=== PATIENT | male | born 1955 | race Asian ===

== ENCOUNTER 2016-12-03 02:36 | Inpatient (IN) | payer MEDICAID ==
[~2016-12-03] VITALS: Ht 162.6 cm; Wt 44.9 kg
[2016-12-03] VITALS (12 sets, daily range): BP systolic 79–111; BP diastolic 56–76
--- NOTE | 2016-12-03 02:55 | Emergency Room Report ---
History of Present Illness General Chief Complaint: Altered Level of Consciousness Source: Family Member, EMS Present Illness HPI This is a 61-year-old [place] male with history of end-stage gastric cancer. He was on chemotherapy for a year. But now cancers getting worse and he was switched to another chemotherapy drugs. He had one round but stopped because he could not tolerate the side effects. He was doing well until tonight. He was shivering and has altered mental status. He was very confused and weak. No cough or congestion. Questionable fever. History is through his son. They have not discussed the CODE STATUS of the patient. As for now, he is a full code. Allergies: Coded Allergies: No Known Allergies (Unverified , 12/03/16) Patient History Past Medical History: see triage record, old chart reviewed Past Surgical History: other Pertinent Family History: none Social History: Denies: drug use Immunizations: other Reviewed Nursing Documentation: PMH: Agreed, PSxH: Agreed Nursing Documentation-PMH Hx Cancer: Yes - END STAGE GASTRIC CA Review of Systems Constitutional: Reports: chills, sweats, weakness Eye: Denies: blurred vision, eye pain ENT: Denies: ear pain, nose congestion, throat swelling Respiratory: Denies: cough, shortness of breath Cardiovascular: Denies: chest pain, palpitations Gastrointestinal: Denies: abdominal pain, diarrhea, nausea, vomiting Musculoskeletal: Denies: back pain, joint pain Skin: Denies: rash Neurological: Denies: headache, numbness Endocrine: Denies: increased thirst, increased urine Hematologic/Lymphatic: Denies: easy bruising All Other Systems: negative except mentioned in HPI Physical Exam Vital Signs Date Time Temp Pulse Resp B/P Pulse Ox O2 Delivery O2 Flow Rate FiO2 12/03/16 02:45 99.5 135 20 118/82 90 Room Air vitals with fever and tachycardia. also hypoxic Sp02 EP Interpretation: abnormal General Appearance: moderate distress, cachetic, Chronically Ill Head: normocephalic, atraumatic Eyes: bilateral eye EOMI, bilateral eye PERRL ENT: hearing grossly normal, dry mucus membranes Neck: full range of motion, supple, no meningismus Respiratory: chest non-tender, decreased breath sounds Cardiovascular #1: regular rate, rhythm, no murmur Gastrointestinal: normal bowel sounds, non tender, no mass, no organomegaly, no bruit, non-distended Musculoskeletal: back normal, normal range of motion Neurologic: other - Lethargic Skin: warm/dry Procedures Critical Care Time Critical Care Time Critical care is mandated in this patient who presented with encephalopathy secondary to sepsis. Patient require my urgent intervention to attenuate the risks of metabolic collapse which may lead to cardiovascular collapse and . Critical care time is 35 minutes excluding any reportable procedure. Critical care time included evaluation, multiple reevaluation, looking at old charts, interpreting laboratory and diagnostic data, discussing case with patient and family and consultants, and charting. Medical Decision Making Diagnostic Impression: Primary Impression: Sepsis Qualified Codes: A41.9 - Sepsis, unspecified organism Additional Impressions: Pneumonia Qualified Codes: J18.9 - Pneumonia, unspecified organism Encephalopathy acute Gastric malignant neoplasm Qualified Codes: C16.9 - Malignant neoplasm of stomach, unspecified ER Course Patient presents with acute encephalopathy secondary to sepsis. Most likely secondary to pneumonia possibly obstructive pneumonia. Heart rate better after IV fluid and Tylenol. He is more alert now. Wide spectrum antibiotic started. When I ask about the code status, unfortunately they have not discussed this. His son said that patient does not want to talk about it. They have been avoiding it. After discussing the prognosis and current illness, he and his mom talked about it. For now, patient is a full code. Pt is feeling better and more alert. He is able to ask for water. Laboratory Tests Test 12/03/16 02:55 12/03/16 03:11 White Blood Count 12.1 K/UL (4.8-10.8) H Red Blood Count 4.15 M/UL (4.70-6.10) L Hemoglobin 13.1 G/DL (14.2-18.0) L Hematocrit 39.5 % (42.0-52.0) L Mean Corpuscular Volume 95 FL (80-99) Mean Corpuscular Hemoglobin 31.4 PG (27.0-31.0) H Mean Corpuscular Hemoglobin Concent 33.1 G/DL (32.0-36.0) Red Cell Distribution Width 13.9 % (11.6-14.8) Platelet Count 411 K/UL (150-450) Mean Platelet Volume 5.3 FL (6.5-10.1) L Neutrophils (%) (Auto) % (45.0-75.0) Lymphocytes (%) (Auto) % (20.0-45.0) Monocytes (%) (Auto) % (1.0-10.0) Eosinophils (%) (Auto) % (0.0-3.0) Basophils (%) (Auto) % (0.0-2.0) Neutrophils % (Manual) Pending Lymphocytes % (Manual) Pending Platelet Estimate Pending Platelet Morphology Pending Prothrombin Time 10.1 SEC (9.30-11.50) Prothromb Time International Ratio 1.0 (0.9-1.1) Activated Partial Thromboplast Time 28 SEC (23-33) Sodium Level 138 mEQ/L (135-145) Potassium Level 4.2 mEQ/L (3.4-4.9) Chloride Level 93 mEQ/L (98-107) L Carbon Dioxide Level 31 mEQ/L (20-30) H Anion Gap 14 (5-15) Blood Urea Nitrogen 10 mg/dL (7-23) Creatinine 0.7 mg/dL (0.7-1.2) Estimat Glomerular Filtration Rate > 60 mL/min (>60) Glucose Level 146 mg/dL (74-106) H Lactic Acid Level 1.80 mmol/L (0.66-2.22) Calcium Level 8.8 mg/dL (8.6-10.2) Total Bilirubin 0.4 mg/dL (0.0-1.2) Aspartate Amino Transf (AST/SGOT) 21 U/L (5-40) Alanine Aminotransferase (ALT/SGPT) 9 U/L (3-41) Alkaline Phosphatase 121 U/L (40-129) Total Creatine Kinase 37 U/L (38-174) L Creatine Kinase MB < 1.5 ng/mL (< 6.7) Troponin I < 0.30 ng/mL (<=0.30) Total Protein 7.1 g/dL (6.6-8.7) Albumin 3.4 g/dL (3.5-5.2) L Globulin 3.7 g/dL Albumin/Globulin Ratio 0.9 (1.0-2.7) L Urine Color Pale yellow Urine Appearance Clear Urine pH 6 (4.5-8.0) Urine Specific [place] 1.010 (1.005-1.035) Urine Protein Negative (NEGATIVE) Urine Glucose (UA) Negative (NEGATIVE) Urine Ketones Negative (NEGATIVE) Urine Occult Blood Negative (NEGATIVE) Urine Nitrite Negative (NEGATIVE) Urine Bilirubin Negative (NEGATIVE) Urine Urobilinogen Normal MG/DL (0.0-1.0) Urine Leukocyte Esterase Negative (NEGATIVE) Lab Results Impression labs normal EKG Diagnostic Results Rate: tachycardiac Rhythm: NSR ST Segments: other - NSST changes. Rhythm Strip Diag. Results EP Interpretation: yes Rate: 100 Rhythm: NSR, no PVC's, no ectopy Chest X-Ray Diagnostic Results EP Interpretation: Yes Findings: no consolidation, no effusion, no pneumothorax, no acute cardiopulmonary disease Number of Views: 1 CT/MRI/US Diagnostic Results CT/MRI/US Diagnostic Results : Imaging Test Ordered: ct chest Impression CT chest: Read by radiologist. Gastric cancer. Right lower lobe infiltrate. Last Vital Signs Date Time Temp Pulse Resp B/P Pulse Ox O2 Delivery O2 Flow Rate FiO2 12/03/16 02:45 99.5 135 20 118/82 90 Room Air Status: improved Disposition: ADMITTED INPATIENT Condition: Serious YESI MOTT M.D. Dec 03, 2016 02:55
[2016-12-03] MEDS ORDERED: NS 1000ml 1,400 ML IVLG ONE (03:00)
[2016-12-03 03:21] LABS: MEAN CORPUSCULAR HEMOGLOBIN 31.4 PG (27.0-31.0); MEAN CORPUSCULAR HGB CONC 33.1 G/DL (32.0-36.0); MEAN CORPUSCULAR VOLUME 95 FL (80-99); MEAN PLATELET VOLUME 5.3 FL (6.5-10.1); PLATELET COUNT 411 K/UL (150-450); RED BLOOD COUNT 4.15 M/UL (4.70-6.10); RED CELL DISTRIBUTION WIDTH 13.9 % (11.6-14.8); WHITE BLOOD COUNT 12.1 K/UL (4.8-10.8)
[2016-12-03] MEDS ORDERED: IMIPRAMINE HCL25 MG PO (03:22)
[2016-12-03] MEDS ORDERED: CARAFATE1 G1 ORAL (03:22)
[2016-12-03] MEDS ORDERED: OMEPRAZOLE40 M1 ORAL (03:22)
[2016-12-03] MEDS ORDERED: FLUCONAZOLE100 MG ORAL (03:22)
[2016-12-03] MEDS ORDERED: LORAZEPAM1 MG ORAL (03:22)
[2016-12-03] MEDS ORDERED: SENNA8.6 M2 PO (03:22)
[2016-12-03] MEDS ORDERED: NORCO 10-325 T1 EACH ORAL (03:22)
[2016-12-03] MEDS ORDERED: MS CONTIN30 MG ORAL (03:22)
[2016-12-03] MEDS ORDERED: ZOFRAN8 MG ORAL (03:22)
[2016-12-03] MEDS ORDERED: METOCLOPRAMIDE H5 M1 ORAL (03:22)
[2016-12-03] MEDS ORDERED: Acetaminophen 650 MG SUPP RECTAL ONE (03:30)
[2016-12-03 03:33] LABS: APPEARANCE,URINE CLEAR; KETONES,URINE NEGATIVE (NEGATIVE); LEUKOCYTE ESTERASE ,URINE NEGATIVE (NEGATIVE); NITRITE,URINE NEGATIVE (NEGATIVE); PH,URINE 6 (4.5-8.0); PROTEIN,URINE NEGATIVE (NEGATIVE); UROBILINOGEN,URINE NORMAL MG/DL (0.0-1.0)
[2016-12-03 03:38] LABS: PROTHROMBIN TIME 10.1 SEC (9.30-11.50)
[2016-12-03 03:44] LABS: ALANINE AMINOTRANSFERASE 9 U/L (3-41); ALBUMIN/GLOBULIN RATIO 0.9 (1.0-2.7); ANION GAP 14 (5-15); ASPARTATE AMINO TRANSFERASE 21 U/L (5-40); CALCIUM 8.8 mg/dL (8.6-10.2); CARBON DIOXIDE 31 mEQ/L (20-30); CHLORIDE 93 mEQ/L (98-107); CREATININE 0.7 mg/dL (0.7-1.2); GLOMERULAR FILTRATION RATE > 60 mL/min (>60); HEMOLYSIS 7; POTASSIUM 4.2 mEQ/L (3.4-4.9); SODIUM 138 mEQ/L (135-145); TOTAL PROTEIN 7.1 g/dL (6.6-8.7)
[2016-12-03 03:47] LABS: TROPONIN I < 0.30 ng/mL (<=0.30)
[2016-12-03 03:54] LABS: CKMB < 1.5 ng/mL (< 6.7)
[2016-12-03] MEDS ORDERED: Zosyn 4.5gm inj ONE (04:45)
[2016-12-03] MEDS ORDERED: Piperacillin/Tazobactam 4.5 GM in NS 110 ML IVPB ONE (04:45)
[2016-12-03 08:13] LABS: BAND NEUTROPHILS % (MANUAL) 3 % (0-8); BASOPHILS % (MANUAL) 0 % (0-2); EOSINOPHILS % (MANUAL) 0 % (0-3); LYMPHOCYTES % (MANUAL) 11 % (20-45); NEUTROPHILS % (MANUAL) 84 % (45-75); PLATELET ESTIMATE ADEQUATE; TOTAL CELLS COUNTED 100
[2016-12-03 08:14] LABS: HYPOCHROMASIA 1+; PLATELET MORPHOLOGY NORMAL
[2016-12-03] MEDS ORDERED: Vancomycin 1gm inj IVPB ONE (10:08)
[2016-12-03] MEDS: Heparin 5000 units/ml inj SUBQ SCH ×2 (10:23→21:44)
[2016-12-03] MEDS: D5NS 1,000 ML IV SCH ×2 (10:27→20:21)
[2016-12-03] MEDS ORDERED: Vancomycin 1gm/D5W 275ml IVPB ONE ×2 (10:30)
[2016-12-03] MEDS: Pantoprazole Inj IVP SCH (10:34)
--- NOTE | 2016-12-03 11:00 | Diagnostic Imaging Report ---
ndication: SOB, chest pain history of gastric carcinoma Technique: IV administration nonionic contrast. Spiral acquisitions obtained from the lung bases to the lung apices. Multiplanar and 3-D reconstructions were generated. Total dose length product 535 mGycm. CTDIvol(s) 12, 15, 14 mGy Comparison: None Findings: There is good quality opacification of the pulmonary arteries. No intraluminal filling defects or other findings to suggest acute pulmonary embolus are evident. No evidence of thoracic aneurysm or dissection. Normal caliber pulmonary arteries. No evidence of right ventricular dilatation Lungs demonstrate dense consolidation of the posterior right lower lobe, and scattered areas of groundglass opacity within the inferior right lower lobe and in the right middle lobe. Areas of scarring or atelectasis are seen bilaterally. A few faint groundglass opacities are also seen at the left lung base. No effusions or congestion. No masses or nodules. There is consolidation, atelectasis, or mass involving the left lower lobe within the left costophrenic sulcus No evidence of pericardial effusion. No mediastinal or hilar mass or adenopathy. The esophagus is unremarkable. The included thyroid is unremarkable. There is a left arm PICC. The upper abdomen demonstrates extensive and severe gastric wall thickening. This is incompletely included. There is suggestion of a communication with the anterolateral gastric wall with a adjacent bowel loop. The hepatic parenchyma is somewhat heterogeneous. Impression: No evidence of acute pulmonary embolus or other acute thoracic vascular pathology Right lower lobe infiltrate, consistent with pneumonia. Patchy areas of groundglass opacity in the left lower lobe, right upper and middle lobes also likely reflect areas of acute inflammation. Left lateral lower lobe opacity, may reflect consolidation and or neoplasm Markedly abnormal stomach, with diffuse wall thickening. This presumably relates to stated clinical history of gastric carcinoma. Superimposed gastritis is also a possibility. Communication of the gastric lumen through a gastric defect within adjacent bowel loop could indicate a spontaneous or postsurgical gastroenteric fistula. Correlate with clinical and surgical history Left arm PICC Heterogeneous hepatic enhancement. Nonspecific, could indicate diffuse neoplastic involvement but discrete nodules are not demonstrated This agrees with the preliminary interpretation provided overnight by [facility] teleradiology service. The CT scanner at [facility] is accredited by the [employer] and the scans are performed using protocols designed to limit radiation exposure to as low as reasonably achievable to attain images of sufficient resolution adequate for diagnostic evaluation.
--- NOTE | 2016-12-03 11:38 | History and Physical Report ---
DATE OF ADMISSION: 12/03/2016 CHIEF COMPLAINT: Severe dehydration, weakness and possible sepsis. HISTORY OF PRESENT ILLNESS: The patient is a 45-year-old male he was diagnosed two and half years ago with gastric carcinoma underwent resection and was receiving chemotherapy recently several months ago. He presented to the emergency room with generalized weakness, dizziness and he was hypotensive. His workup in the emergency room with significant for white count of 12,000. Urinalysis is clear. Chest x-ray showed a possible pneumonia. The patient is started on antibiotic therapy and is now admitted for further evaluation and care. PAST MEDICAL HISTORY: As above. PAST SURGICAL HISTORY: As above. MEDICATIONS: Current medications are none. SOCIAL HISTORY: Negative for tobacco, ethanol, or drugs. FAMILY HISTORY: None. REVIEW OF SYSTEMS: General: Positive fevers and chills. No night sweats. HEENT: No headaches or visual changes. Cardiopulmonary: No chest pain or shortness of breath. Gastrointestinal: No nausea or vomiting. Genitourinary: No urgency or frequency. Neurologic: No evidence of seizures. PHYSICAL EXAMINATION: VITAL SIGNS: Temperature 99.0 degrees, blood pressure is 93/65, pulse of 80, and respirations 16. GENERAL: The patient is a thin, frail elderly male, in no apparent distress. He is alert and oriented x4. NECK: Supple. There is no jugular venous distention. HEART: Regular rate and rhythm. LUNGS: Clear anteriorly. ABDOMEN: Soft, nontender, and nondistended. EXTREMITIES: Without clubbing, cyanosis, or edema. LABORATORY AND DIAGNOSTIC DATA: Current data, x-ray results are currently pending. White count was 12, hemoglobin 13 and hematocrit 39. Coags are normal. Sodium 138, potassium 4.2, chloride 93, bicarbonate 31, BUN 10, and creatinine 0.7. UA was clear. ASSESSMENT: 1. This is an unfortunate male with history of metastatic gastric carcinoma admitted with severe dehydration and possible sepsis secondary to pneumonia 2. Sepsis. 3. Shock. 4. Possible pneumonia. 5. Metastatic gastric carcinoma. PLAN: IV hydration, IV antibiotics. Follow cultures. Code Status was addressed with the patient as well the family at the bedside. We recreated billet assembler as the patient is DNR. Royce Pizarro M.D. DR: Mira JOB#: [id number] CC:
[2016-12-03] MEDS: Piperacillin/Tazobactam 3.375 GM in D5W 110 ML IVPB SCH ×2 (13:37→20:21)
--- NOTE | 2016-12-03 13:46 | Diagnostic Imaging Report ---
Indication: Chest pain Technique: One view of the chest Comparison: None Findings: There is a left arm port catheter, tip projected at the level of the cavoatrial junction. There are some ill-defined infiltrative opacities in the right mid and lower lung. These are better appreciated on a subsequent chest CT. The heart size is normal Impression: Vague right lung parenchymal opacities, likely pneumonia, better appreciated on subsequent CT scan Other findings as noted, including left arm port
[2016-12-03] MEDS: Morphine Sulfate 2mg/ml Inj IVP PRN (18:26)
[2016-12-03] MEDS: TraZODone 50mg tab ORAL PRN (21:38)
[2016-12-04] VITALS: BP 95/61
[2016-12-04] MEDS: Piperacillin/Tazobactam 3.375 GM in D5W 110 ML IVPB SCH ×3 (02:00→20:10)
[2016-12-04] MEDS ORDERED: Zosyn 3.375gm inj ONE (02:30)
[2016-12-04 04:00] VITALS: BP 99/68
[2016-12-04] MEDS: D5NS 1,000 ML IV SCH ×2 (04:23→15:55)
[2016-12-04 08:08] VITALS: BP 116/70
[2016-12-04] MEDS: Pantoprazole Inj IVP SCH (08:53)
[2016-12-04] MEDS: Heparin 5000 units/ml inj SUBQ SCH ×2 (08:58→20:19)
[2016-12-04] MEDS: Vancomycin 750mg/D5W 275ml IVPB SCH ×2 (09:58)
[2016-12-04] MEDS: Morphine Sulfate 2mg/ml Inj IVP PRN ×2 (12:00→20:11)
[2016-12-04 12:31] VITALS: BP 117/67
[2016-12-04 16:04] VITALS: BP 111/77
[2016-12-04 18:35] LABS: MEAN CORPUSCULAR HEMOGLOBIN 31.3 PG (27.0-31.0); MEAN CORPUSCULAR HGB CONC 32.5 G/DL (32.0-36.0); MEAN CORPUSCULAR VOLUME 96 FL (80-99); MEAN PLATELET VOLUME 4.9 FL (6.5-10.1); PLATELET COUNT 296 K/UL (150-450); RED BLOOD COUNT 2.98 M/UL (4.70-6.10); RED CELL DISTRIBUTION WIDTH 13.7 % (11.6-14.8); WHITE BLOOD COUNT 16.2 K/UL (4.8-10.8)
[2016-12-04 18:54] LABS: ALANINE AMINOTRANSFERASE 72 U/L (3-41); ALBUMIN/GLOBULIN RATIO 0.8 (1.0-2.7); ANION GAP 13 (5-15); ASPARTATE AMINO TRANSFERASE 34 U/L (5-40); CALCIUM 7.9 mg/dL (8.6-10.2); CARBON DIOXIDE 24 mEQ/L (20-30); CHLORIDE 99 mEQ/L (98-107); CREATININE 0.6 mg/dL (0.7-1.2); GLOMERULAR FILTRATION RATE > 60 mL/min (>60); HEMOLYSIS 3; POTASSIUM 3.3 mEQ/L (3.4-4.9); SODIUM 136 mEQ/L (135-145); TOTAL PROTEIN 5.5 g/dL (6.6-8.7)
[2016-12-04 19:00] LABS: BAND NEUTROPHILS % (MANUAL) 0 % (0-8); BASOPHILS % (MANUAL) 0 % (0-2); EOSINOPHILS % (MANUAL) 0 % (0-3); HYPOCHROMASIA 1+; LYMPHOCYTES % (MANUAL) 9 % (20-45); NEUTROPHILS % (MANUAL) 87 % (45-75); PLATELET ESTIMATE ADEQUATE; PLATELET MORPHOLOGY NORMAL; TOTAL CELLS COUNTED 100
[2016-12-04 19:53] VITALS: BP 117/67
--- NOTE | 2016-12-04 20:50 | General Progress Note ---
Assessment/Plan Problem List: (1) Encephalopathy acute ICD Codes: G93.40 - Encephalopathy, unspecified SNOMED: 7569313 (2) Pneumonia ICD Codes: J18.9 - Pneumonia, unspecified organism SNOMED: 450159293 Qualifiers: Qualified Codes: J18.9 - Pneumonia, unspecified organism (3) Sepsis ICD Codes: A41.9 - Sepsis, unspecified organism SNOMED: 02496029 Qualifiers: Qualified Codes: A41.9 - Sepsis, unspecified organism Status: stable, progressing Assessment/Plan iv abx follow cultures monitor cxr ivf Subjective Constitutional: Reports: malaise, weakness HEENT: Reports: no symptoms Cardiovascular: Reports: no symptoms Respiratory: Reports: no symptoms Gastrointestinal/Abdominal: Reports: no symptoms Genitourinary: Reports: no symptoms Neurologic/Psychiatric: Reports: no symptoms Endocrine: Reports: no symptoms Hematologic/Lymphatic: Reports: no symptoms Allergies: Coded Allergies: No Known Allergies (Unverified , 12/03/16) All Systems: reviewed and negative except above Subjective doing better. no cp/sob. no fever or chills . on iv abx. Objective Last 24 Hour Vital Signs Date Time Temp Pulse Resp B/P Pulse Ox O2 Delivery O2 Flow Rate FiO2 12/04/16 19:53 98.4 80 20 117/67 Room Air 12/04/16 16:04 97.9 80 20 111/77 98 Room Air 12/04/16 12:31 98.2 67 19 117/67 99 Room Air 12/04/16 12:30 97.9 12/04/16 08:08 97.9 85 19 116/70 99 Room Air 12/04/16 04:00 97.9 82 18 99/68 97 Room Air 12/04/16 00:00 98.1 78 20 95/61 97 Room Air Intake and Output 12/03/16 12/04/16 19:00 07:00 Intake Total 1610.0 ml 1395.0 ml Output Total 500 ml 4800 ml Balance 1110.0 ml -3405.0 ml Intake Oral 240 ml IV Total 1610.0 ml 1155.0 ml Output Urine Total 500 ml 4800 ml Laboratory Tests 12/04/16 18:21: White Blood Count 16.2H, Red Blood Count 2.98L, Hemoglobin 9.3L, Hematocrit 28.7L, Mean Corpuscular Volume 96, Mean Corpuscular Hemoglobin 31.3H, Mean Corpuscular Hemoglobin Concent 32.5, Red Cell Distribution Width 13.7, Platelet Count 296, Mean Platelet Volume 4.9L, Neutrophils (%) (Auto) , Lymphocytes (%) ( Auto) , Monocytes (%) (Auto) , Eosinophils (%) (Auto) , Basophils (%) (Auto) , Differential Total Cells Counted 100, Neutrophils % (Manual) 87H, Lymphocytes % (Manual) 9L, Monocytes % (Manual) 4, Eosinophils % (Manual) 0, Basophils % ( Manual) 0, Band Neutrophils 0, Platelet Estimate Adequate, Platelet Morphology Normal, Hypochromasia 1+, Sodium Level 136, Potassium Level 3.3L, Chloride Level 99, Carbon Dioxide Level 24, Anion Gap 13, Blood Urea Nitrogen 5L, Creatinine 0.6L, Estimat Glomerular Filtration Rate > 60, Glucose Level 183H, Calcium Level 7.9L, Total Bilirubin 0.2, Aspartate Amino Transf (AST/SGOT) 34, Alanine Aminotransferase (ALT/SGPT) 72H, Alkaline Phosphatase 133H, Total Protein 5.5L, Albumin 2.5L, Globulin 3.0, Albumin/Globulin Ratio 0.8L Height (Feet): 5 Height (Inches): 4.00 Weight (Pounds): 99 General Appearance: WD/WN, alert, cachetic, thin Neck: supple Cardiovascular: regular rhythm Respiratory/Chest: lungs clear Abdomen: normal bowel sounds, non tender, soft Edema: no edema noted Arm (L), no edema noted Arm (R), no edema noted Leg (L), no edema noted Leg (R), no edema noted Pedal (L), no edema noted Pedal (R), no edema noted Generalized LING KENNY Dec 04, 2016 20:50
[2016-12-05] VITALS: BP 112/70
[2016-12-05] MEDS: D5NS 1,000 ML IV SCH (01:30)
[2016-12-05] MEDS: Piperacillin/Tazobactam 3.375 GM in D5W 110 ML IVPB SCH ×3 (01:30→21:05)
[2016-12-05] MEDS: Morphine Sulfate 2mg/ml Inj IVP PRN ×3 (02:20→17:41)
[2016-12-05 04:00] VITALS: BP 123/83
[2016-12-05 07:24] LABS: BASOPHILS % (AUTO) 0.4 % (0.0-2.0); EOSINOPHILS % (AUTO) 0.6 % (0.0-3.0); LYMPHOCYTES % (AUTO) 11.8 % (20.0-45.0); MEAN CORPUSCULAR HEMOGLOBIN 31.1 PG (27.0-31.0); MEAN CORPUSCULAR HGB CONC 32.8 G/DL (32.0-36.0); MEAN CORPUSCULAR VOLUME 95 FL (80-99); MEAN PLATELET VOLUME 4.7 FL (6.5-10.1); MONOCYTES % (AUTO) 3.7 % (1.0-10.0); NEUTROPHILS % (AUTO) 83.5 % (45.0-75.0); PLATELET COUNT 354 K/UL (150-450); RED BLOOD COUNT 3.25 M/UL (4.70-6.10); RED CELL DISTRIBUTION WIDTH 13.9 % (11.6-14.8)
[2016-12-05 07:55] LABS: ALANINE AMINOTRANSFERASE 64 U/L (3-41); ALBUMIN/GLOBULIN RATIO 0.7 (1.0-2.7); ANION GAP 13 (5-15); ASPARTATE AMINO TRANSFERASE 34 U/L (5-40); CALCIUM 8.3 mg/dL (8.6-10.2); CARBON DIOXIDE 26 mEQ/L (20-30); CHLORIDE 101 mEQ/L (98-107); CREATININE 0.6 mg/dL (0.7-1.2); GLOMERULAR FILTRATION RATE > 60 mL/min (>60); HEMOLYSIS 4; POTASSIUM 4.2 mEQ/L (3.4-4.9); SODIUM 140 mEQ/L (135-145); TOTAL PROTEIN 5.9 g/dL (6.6-8.7)
[2016-12-05 08:16] VITALS: BP 93/53
[2016-12-05] MEDS: Heparin 5000 units/ml inj SUBQ SCH ×2 (09:06→21:19)
[2016-12-05] MEDS: Pantoprazole Inj IVP SCH (09:07)
--- NOTE | 2016-12-05 09:47 | General Progress Note ---
Assessment/Plan Problem List: (1) Encephalopathy acute ICD Codes: G93.40 - Encephalopathy, unspecified SNOMED: [id number] (2) Pneumonia ICD Codes: J18.9 - Pneumonia, unspecified organism SNOMED: 726564590 Qualifiers: Qualified Codes: J18.9 - Pneumonia, unspecified organism (3) Sepsis ICD Codes: A41.9 - Sepsis, unspecified organism SNOMED: 47322061 Qualifiers: Qualified Codes: A41.9 - Sepsis, unspecified organism Status: stable, progressing Assessment/Plan iv abx follow cultures monitor cxr ivf Subjective ROS Limited/Unobtainable: No Constitutional: Reports: weakness HEENT: Reports: no symptoms Cardiovascular: Reports: no symptoms Respiratory: Reports: no symptoms Gastrointestinal/Abdominal: Reports: no symptoms Genitourinary: Reports: no symptoms Neurologic/Psychiatric: Reports: no symptoms Endocrine: Reports: no symptoms Hematologic/Lymphatic: Reports: no symptoms Allergies: Coded Allergies: No Known Allergies (Unverified , 12/03/16) All Systems: reviewed and negative except above Subjective doing better. no cp/sob. no fever or chills . on iv abx. family at the bedside. feeling "better" per son Objective Last 24 Hour Vital Signs Date Time Temp Pulse Resp B/P Pulse Ox O2 Delivery O2 Flow Rate FiO2 12/05/16 08:16 96.4 83 19 93/53 98 Room Air 12/05/16 04:00 98.4 75 20 123/83 96 Room Air 12/05/16 02:51 97.3 12/05/16 00:00 97.3 89 20 112/70 99 Room Air 12/04/16 19:53 98.4 80 20 117/67 Room Air 12/04/16 16:04 97.9 80 20 111/77 98 Room Air 12/04/16 12:31 98.2 67 19 117/67 99 Room Air Intake and Output 12/04/16 12/05/16 19:00 07:00 Intake Total 1717.416 ml 1770.0 ml Output Total 3900 ml Balance 1717.416 ml -2130.0 ml Intake Oral 240 ml 450 ml IV Total 1477.416 ml 1320.0 ml Output Urine Total 3900 ml Laboratory Tests 12/04/16 18:21: White Blood Count 16.2H, Red Blood Count 2.98L, Hemoglobin 9.3L, Hematocrit 28.7L, Mean Corpuscular Volume 96, Mean Corpuscular Hemoglobin 31.3H, Mean Corpuscular Hemoglobin Concent 32.5, Red Cell Distribution Width 13.7, Platelet Count 296, Mean Platelet Volume 4.9L, Neutrophils (%) (Auto) , Lymphocytes (%) ( Auto) , Monocytes (%) (Auto) , Eosinophils (%) (Auto) , Basophils (%) (Auto) , Differential Total Cells Counted 100, Neutrophils % (Manual) 87H, Lymphocytes % (Manual) 9L, Monocytes % (Manual) 4, Eosinophils % (Manual) 0, Basophils % ( Manual) 0, Band Neutrophils 0, Platelet Estimate Adequate, Platelet Morphology Normal, Hypochromasia 1+, Sodium Level 136, Potassium Level 3.3L, Chloride Level 99, Carbon Dioxide Level 24, Anion Gap 13, Blood Urea Nitrogen 5L, Creatinine 0.6L, Estimat Glomerular Filtration Rate > 60, Glucose Level 183H, Calcium Level 7.9L, Total Bilirubin 0.2, Aspartate Amino Transf (AST/SGOT) 34, Alanine Aminotransferase (ALT/SGPT) 72H, Alkaline Phosphatase 133H, Total Protein 5.5L, Albumin 2.5L, Globulin 3.0, Albumin/Globulin Ratio 0.8L 12/05/16 05:10: White Blood Count 12.0H, Red Blood Count 3.25L, Hemoglobin 10.1L, Hematocrit 30.9L, Mean Corpuscular Volume 95, Mean Corpuscular Hemoglobin 31.1H, Mean Corpuscular Hemoglobin Concent 32.8, Red Cell Distribution Width 13.9, Platelet Count 354, Mean Platelet Volume 4.7L, Neutrophils (%) (Auto) 83.5H, Lymphocytes (%) (Auto) 11.8L, Monocytes (%) (Auto) 3.7, Eosinophils (%) (Auto) 0.6, Basophils (%) (Auto) 0.4, Sodium Level 140, Potassium Level 4.2, Chloride Level 101, Carbon Dioxide Level 26, Anion Gap 13, Blood Urea Nitrogen 3L, Creatinine 0.6L, Estimat Glomerular Filtration Rate > 60, Glucose Level 124H, Calcium Level 8.3L, Total Bilirubin 0.3, Aspartate Amino Transf (AST/SGOT) 34, Alanine Aminotransferase (ALT/SGPT) 64H, Alkaline Phosphatase 205H, Total Protein 5.9L, Albumin 2.6L, Globulin 3.3, Albumin/Globulin Ratio 0.7L Height (Feet): 5 Height (Inches): 4.00 Weight (Pounds): 99 General Appearance: WD/WN, alert, cachetic, thin Neck: supple Cardiovascular: regular rhythm Respiratory/Chest: lungs clear Abdomen: normal bowel sounds, non tender, soft Edema: no edema noted Arm (L), no edema noted Arm (R), no edema noted Leg (L), no edema noted Leg (R), no edema noted Pedal (L), no edema noted Pedal (R), no edema noted Generalized LING KENNY Dec 05, 2016 09:47
[2016-12-05] MEDS: Vancomycin 750mg/D5W 275ml IVPB SCH ×2 (10:43)
[2016-12-05] MEDS ORDERED: Tubing IV Secondary IV ONE (10:49)
[2016-12-05] MEDS ORDERED: D5NS 1000ml IV ONE (10:49)
[2016-12-05] MEDS ORDERED: NS 275ml ONE (10:49)
[2016-12-05 12:38] VITALS: BP 109/77
--- NOTE | 2016-12-05 15:05 | Cardiology Report ---
APPROVED REPORT EKG Measurement Heart [id number] IN [id number] [id number] Sinus tachycardia Otherwise normal ECG
[2016-12-05 16:00] VITALS: BP 105/60
[2016-12-05 20:00] VITALS: BP 121/85
[2016-12-06] VITALS: BP 117/72
[2016-12-06] MEDS: Morphine Sulfate 2mg/ml Inj IVP PRN ×4 (00:09→18:38)
[2016-12-06] MEDS: TraZODone 50mg tab ORAL PRN (00:13)
[2016-12-06] MEDS: Piperacillin/Tazobactam 3.375 GM in D5W 110 ML IVPB SCH ×3 (01:51→20:16)
[2016-12-06 04:00] VITALS: BP 106/73
[2016-12-06 06:00] VITALS: BP 106/73
[2016-12-06] MEDS: Heparin 5000 units/ml inj SUBQ SCH ×2 (08:35→20:16)
[2016-12-06] MEDS: Pantoprazole Inj IVP SCH (08:37)
[2016-12-06 08:47] VITALS: BP 105/69
[2016-12-06] MEDS: Vancomycin 750mg/D5W 275ml IVPB SCH ×4 (11:34→23:37)
[2016-12-06 12:30] VITALS: BP 114/85
[2016-12-06 19:53] VITALS: BP 113/78
[2016-12-07] VITALS: BP 92/64
[2016-12-07] MEDS: Piperacillin/Tazobactam 3.375 GM in D5W 110 ML IVPB SCH (02:01)
[2016-12-07 08:00] VITALS: BP 98/68
[2016-12-07 08:54] VITALS: BP 110/70
--- NOTE | 2016-12-07 08:59 | Diagnostic Imaging Report ---
Indication: COUGH Technique: XRAY CHEST 1 V Comparison:12/03/2016 Findings: The heart is normal in size. The lungs are now clear. No pleural fluid. Bones are unremarkable. An infusion port in left arm is again seen. Impression: Clearing of the infiltrate in the right lung. No acute abnormality.
[2016-12-07] MEDS: Heparin 5000 units/ml inj SUBQ SCH (09:00)
[2016-12-07] MEDS: Pantoprazole Inj IVP SCH (09:00)
[2016-12-07] MEDS: Morphine Sulfate 2mg/ml Inj IVP PRN (09:12)
--- NOTE | 2016-12-07 11:14 | Diagnostic Imaging Report ---
Indication: COUGH Technique: One view of the chest Comparison: 12/05/2016 Findings: Blunting of left costophrenic angle persists, unchanged from the earlier exam, probably second toe pleural mass demonstrated on recent chest CT. A band of atelectasis is seen in the left suprahilar region faint opacities are seen at the right lung base. The heart size is normal. Left arm port is again demonstrated. Findings are unchanged Impression: Unchanged, over 2 days, findings as above.
[2016-12-07 11:55] VITALS: BP 92/69
[2016-12-07] MEDS: Vancomycin 750mg/D5W 275ml IVPB SCH ×2 (12:45)
[2016-12-07] MEDS ORDERED: RESTORIL15 MG ORAL (13:20)
[2016-12-07] MEDS ORDERED: LEVAQUIN500 MG ORAL (13:20)
[2016-12-07] MEDS ORDERED: METRONIDAZOLE500 MG ORAL (13:20)
[2016-12-07] MEDS ORDERED: NS 275ml ONE (15:40)
--- NOTE | 2016-12-08 01:48 | Discharge Summary ---
DATE OF ADMISSION: 12/02/2016 DATE OF DISCHARGE: 12/07/2016 ADMISSION DIAGNOSES: 1. Dehydration. 2. Possible pneumonia. 3. History of gastric carcinoma. BRIEF HISTORY AND HOSPITAL COURSE: This is an unfortunate male with past medical history of hypotension, sepsis. He was diagnosed with pneumonia and he was treated with IV antibiotic therapy. He improved quickly with IV antibiotic therapy with hydration. On discharge, he was doing well. X-ray did show some improvement in his pneumonia. He will be continued on antibiotic therapy. He will follow up on with his regular oncologist. DISCHARGE MEDICATIONS: Please see discharge medication list for discharge medications. DIET: Regular diet. ACTIVITY: Ad-sweta. Royce Pizarro M.D. DR: Adin JOB#: [id number] CC:
== END 2016-12-07 15:41 | disposition home or self-care (01) | DRG 720 ==
LOC: EDBD 02:36 → EMR 02:59 → EDBEDREQ 04:52 → 4W 04:53 → EDBEDREQSVC 11:07 → EDBEDREQ 11:13 → 4W 22:28
DX: A41.9 Sepsis, unspecified organism (principal); G93.40 Encephalopathy, unspecified; C16.9 Malignant neoplasm of stomach, unspecified; J18.9 Pneumonia, unspecified organism; C79.9 Secondary malignant neoplasm of unspecified site; E86.0 Dehydration; Z66 Do not resuscitate
CPT/HCPCS: 36415; 71010; 71275; 80053; 80202; 81003; 82550; 82553; 83605; 84484; 85007; 85025; 85610; 85730; 86850; 86900; 86901; 87040; 87081; 93005; J8499